=== PATIENT | female | born 2005 | race Caucasian/White ===

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

== ENCOUNTER 2025-01-01 11:18 | Outpatient (CLI) | payer MEDICAID, SELFPAY ==
[2025-01-01 13:38] LABS: HCG Quant, Pregnancy 15481 mIU/mL (1-3)
== END 2025-01-01 11:19 | disposition home or self-care (01) ==
LOC: LBO 11:20
PROVIDERS: PCP Student in an Organized Health Care Education/Training Program; Visit Provider Advanced Practice Midwife
DX: Z34.91 Encounter for supervision of normal pregnancy, unspecified, first trimester (principal); Z32.01 Encounter for pregnancy test, result positive
CPT/HCPCS: 36415; 86850; 86900; 86901; 84702

== ENCOUNTER 2025-01-09 01:05 | Outpatient (CLI) | payer MEDICAID, SELFPAY ==
[2025-01-09 13:55] LABS: HCG Quant, Pregnancy 62122 mIU/mL (1-3)
== END 2025-01-09 01:06 | disposition home or self-care (01) ==
LOC: LBO 01:05
PROVIDERS: Visit Provider Advanced Practice Midwife
DX: Z34.91 Encounter for supervision of normal pregnancy, unspecified, first trimester (principal)
CPT/HCPCS: 36415; 84702

== ENCOUNTER 2025-01-13 11:48 | Emergency (ER) | payer MEDICAID, SELFPAY ==
--- NOTE | 2025-01-13 12:00 | DI.US_ITS ---
Exam(s) US OB 1ST TRIMESTER EXAM: US OB 1ST TRIMESTER CLINICAL HISTORY: bleeding in first trimester. COMPARISON: US US OB 1ST TRIMESTER from 01/02/2025 TECHNIQUE: Transabdominal Transvaginal first trimester obstetrical ultrasound performed. FINDINGS: Sonographic images demonstrate a single intrauterine gestation. A very small amount of subchorionic hemorrhage is noted measuring 1.1 x 0.4 x 1.7 cm. A yolk sac and pole are seen. Sonographically assessed gestational age based upon crown-rump length of 1.2 cm is: 7 weeks 3 days Estimated date of delivery based on this ultrasound is: 29 August 2025. Estimated date of delivery based upon LMP: 29 August 2025 heart rate motion is Dopplered at: 159 bpm. No free fluid identified. Both ovaries appear sonographically normal. Pelvic Measurments Uterus: 9.1 x 5.1 x 6.6 cm Rt Ovary: 3.5 x 2.3 x 2.7 cm Lt Ovary: 2.8 x 1.5 x 2.3 cm IMPRESSION: Single live intrauterine gestation measuring 7 weeks 3 days. A small amount of subchorionic hemorrhage is again noted. DATA REPOSITORY:
[2025-01-13 12:01] VITALS: BP 122/83; PULSE 89; RESP 20; TEMP 36.5; O2SAT 98
--- NOTE | 2025-01-13 12:11 | W.ED.GENAD ---
Discharge Plan Disposition Patient Disposition: Home Discharge Details Clinical Impression: Subchorionic hemorrhage in first trimester, Primary Care Provider: Unknown,Unknown ED Provider: Reba Mata Home Meds and New Rx's Prescriptions: No Action ferrous sulfate [Feosol] 325 mg (65 mg iron) tablet 325 mg PO DAILY One Daily [id number] mg-mcg-mg combo pack 1 pkg PO DAILY AM Discharge Instructions Additional Instructions: Please call [facility] to schedule a follow-up appointment within the week. Return to emergency care if you develop new cramping/abdominal pain, heavy bleeding (>1 pad/hour), or if you are very worried and need to be rechecked again immediately. [place] [facility] [place] HPI General Date/Time Provider Initiated Documentation: 01/13/25 11:49. HPI Narrative: Maranda is a 19 year old female who presents to the ED today for evaluation of vaginal bleeding. She reports she is in her first trimester of (A0), LMP 11/22/24. She noticed a swirl of pink in the toilet after urinating and a faint trace on blood on TP after wiping today. Otherwise feels well, denies fever/chills, nausea/vomiting, change in PO intake, dysuria, change in bowel or bladder function, painful intercourse. Does have occasional mild abdominal cramping; says this has been ongoing and is unchanged since beginning of . Denies significant PMH or recent trauma. Had US performed on 01/09/25 showing single intrauterine (5+6 weeks) with subchorionic hemorrhage. Physical exam reassuring. Maranda is alert and oriented, in no acute distress. Abdomen is soft, nondistended, nontender to palpation with normoactive BS. Easy work of breathing, lung sounds clear bilaterally. Normal heart sounds. MMM. D/dx inclues but is not limited to: threatened miscarriage, subchorionic hemorrhage, UTI, ectopic (less likely based on reassuring US recently performed). VS reassuring (no tachycardia, hypotension, tachypnea), no concern at this time for hemodynamic instability or sepsis I independently interpreted the following tests: CBC reassuring. HCG positive. Blood type and RH (A+). Beta HCG 79,146 (increased from 62,122 on 01/09/25) Discussed case with dani Hull. Reviewed labs and imaging; all reassuring. Pt once again has subchorionic hemorrhage noted. OB recommends close f/u within one week and monitoring for abrupt changes such as cramping/abd pain and increased bleeding. Reviewed discharge instructions with pt, including importance of close f/u and red flags indicating need for return to emergency care. She is agreeable with plan of care. 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: 3 Review of Systems Narrative: see HPI Exam Const General: cooperative, healthy appearing, comfortable, no acute distress, well developed and well groomed Nutritional Appearance: average body habitus and well nourished Orientation: alert and oriented x3 Resp Effort & Inspection: normal respiratory effort and able to speak in complete sentences Auscultation: clear to auscultation bilaterally Cardio Rate: regular rate Rhythm: regular rhythm GI Inspection: normal to inspection and non-distended Palpation: soft, not firm, no guarding, not rigid and nontender Auscultation: normal bowel sounds Skin General skin exam: no rashes or lesions noted Course Vital Signs Vital signs: Vital Signs Temperature 36.5 C 01/13/25 12:01 Pulse 89 01/13/25 12:01 Respiratory Rate 20 01/13/25 12:01 Blood Pressure 122/83 01/13/25 12:01 Pulse Oximetry 98 01/13/25 12:01 Temperature 36.5 C 01/13/25 12:01 Pulse 89 01/13/25 12:01 Respiratory Rate 20 01/13/25 12:01 Blood Pressure 122/83 01/13/25 12:01 Blood Pressure Position Sitting 01/13/25 12:01 Pulse Oximetry 98 01/13/25 12:01 Oxygen Delivery Method Room Air 01/13/25 12:01 Oxygen Flow Rate 0 01/13/25 12:01 Medical Decision Making Quality:SDOH Health Related Social Needs: No Data to Display PFSH All Active Problems (Updated 01/13/25 @ 14:45 by Reba Quijano) Subchorionic hemorrhage in first trimester (Acute) , location unknown (Acute) Positive test (Acute) (Acute) Abdominal pain (Acute) Anxiety (Chronic) Depression (Chronic) PHQ9 + in 2018 (Score 18) with h/o self harm and strong family hx of anxiety/depression Last medicated about 1.5yrs ago, Medical History (Updated 01/13/25 @ 14:45 by Reba Quijano) Migraine headache without aura Weight loss Skin cyst Encounter for Nexplanon removal Family History Mother Bipolar disorder Father Anxiety Social History (Updated 01/01/25 @ 10:37 by Ronna Castro CNM) Smoking/Tobacco Use Status: Former Tobacco Use tobacco type: cigarettes Quit Date: 12/25/24 Second Hand Exposure: Yes Smoking risk assessment performed?: Yes Alcohol Intake: former Drug use: Occasionally Substance use type: marijuana Counseling given: Yes Counseling provided: provider counseling Foster care: No Household members: significant other Housing: apartment Education Level: high school Details: Senior at [age] 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 [employer] Pets and animals: Yes Pets and animals: cat(s) and dog(s) Sexually active: Yes Do you think of yourself as: straight/heterosexual Current gender identity: female What is your relationship status?: living with partner Panel score (0-1 are the most socially isolated patients): 1 What type of physical activity do you participate in: walking, aerobic and weight lifting Special liseth needs: No Agree to transfusion: Yes In current or past relationships, have you been: other Do you feel safe at home: Yes Do you feel safe in your relationship?: Yes PAWSS Have you Been Recently Intoxicated or Drunk Within the Last 30 days?: No Have you Ever Experienced Previous Episodes of Alcohol Withdrawal?: No Have you ever Experienced Withdrawal Seizures?: No Have you ever Experienced Delirium Tremens(DT)s?: No Have you ever undergone Alcohol Rehabilitation Treatment (i.e, inpt ot outpatient treatment programs)?: No Have you ever Experienced Blackouts?: No Have you ever Combined Alcohol with other Downers within the last 90 days?: No Have you ever Combined Alcohol with any other Substance of Abuse during the last 90 days?: No Positive Blood Alcohol level on Presentation? [PCS.BAL]: No Evidence of Increased Autonomic Activity (i.e. HR>120, tremor, sweating, agitation, nausea)?: No Result: 0
[2025-01-13 12:36] LABS: Abs Immature Grans 0.02 10^3/uL (0.0-0.06); Absolute Basophil Count 0.02 10^3/uL (0.0-0.2); Absolute Eosinophil Count 0.08 10^3/uL (0.0-0.7); Absolute Lymphocyte Count 1.75 10^3/uL (1.2-3.4); Absolute Monocyte Count 0.87 10^3/uL (0.1-0.8); Basophils % 0.3 %; HCT 40.4 % (36.0-46.0); HGB 13.9 g/dL (11.2-15.7); Immature Grans % 0.3 %; Lymphocytes % 22.6 %; MCH 28.7 pg (27.0-33.0); MCHC 34.4 % (32.0-36.0); MCV 84 fL (80-95); MPV 10.1 fL (8.0-11.0); Monocytes % 11.2 %; Neutrophils % 64.6 %; Platelet Count 216 10^3/uL (130-400); RBC 4.84 10^6/uL (3.93-5.22); RDW 12.4 % (11.7-14.6); RDW-SD 37.7 fL; WBC 7.74 10^3/uL (4.4-10.8)
[2025-01-13 13:03] LABS: HCG Qual (Serum) Positive
[2025-01-13 15:21] VITALS: BP 106/53; PULSE 75; RESP 21; TEMP 36.5; O2SAT 100
== END 2025-01-13 15:24 | disposition home or self-care (01) ==
PROVIDERS: Emergency Provider Nurse Practitioner Family
DX: O20.8 Other hemorrhage in early pregnancy (principal); Z3A.01 Less than 8 weeks gestation of pregnancy
CPT/HCPCS: 36415; 86900; 86901; 99284; 76801; 84702; 84703; 85025

== ENCOUNTER 2025-02-06 02:57 | Outpatient (CLI) | payer MEDICAID, SELFPAY ==
[2025-02-06 11:37] LABS: Panorama Kit Sent via Fed Ex
[2025-02-06 12:11] LABS: Abs Immature Grans 0.03 10^3/uL (0.0-0.06); Absolute Basophil Count 0.03 10^3/uL (0.0-0.2); Absolute Eosinophil Count 0.15 10^3/uL (0.0-0.7); Absolute Lymphocyte Count 1.95 10^3/uL (1.2-3.4); Absolute Monocyte Count 0.86 10^3/uL (0.1-0.8); Absolute Neutrophil Count 5.46 10^3/uL (1.2-6.7); Basophils % 0.4 %; Eosinophils % 1.8 %; HCT 36.7 % (36.0-46.0); HGB 12.9 g/dL (11.2-15.7); Immature Grans % 0.4 %; MCH 29.1 pg (27.0-33.0); MCHC 35.1 % (32.0-36.0); MCV 83 fL (80-95); MPV 10.4 fL (8.0-11.0); Monocytes % 10.1 %; Neutrophils % 64.3 %; Platelet Count 210 10^3/uL (130-400); RBC 4.44 10^6/uL (3.93-5.22); RDW 12.9 % (11.7-14.6); RDW-SD 38.8 fL; WBC 8.48 10^3/uL (4.4-10.8)
[2025-02-06 12:41] LABS: Hemoglobin A1C 4.8 % (<5.7)
[2025-02-06 13:25] LABS: HCG Quant, Pregnancy 52999 mIU/mL (1-3)
[2025-02-06 20:18] LABS: Hepatitis B Surface Ag Negative (Negative)
[2025-02-06 20:37] LABS: Hepatitis C Ab w Rflx HCV PCR Negative (Negative)
[2025-02-06 20:38] LABS: HIV-1/2 Ag & Ab Screen Negative (Negative)
[2025-02-09 13:52] LABS: Rubella IgG Ab (UVM) Positive (See Note); Varicella IgG Antibody Negative (See Note)
[2025-02-10 13:36] LABS: Syphilis IgG w/Reflex Nonreactive (Nonreactive)
== END 2025-02-06 02:58 | disposition home or self-care (01) ==
LOC: LBO 02:58
PROVIDERS: Advanced Practice Midwife; Visit Provider Advanced Practice Midwife
DX: Z34.81 Encounter for supervision of other normal pregnancy, first trimester (principal); O36.80X0 Pregnancy with inconclusive fetal viability, not applicable or unspecified
CPT/HCPCS: 36415; 86787; 86803; 86850; 86900; 86901; 87340; 87389; 83036; 84702; 85025; 86762; 86780

== ENCOUNTER 2025-02-06 10:17 | Outpatient (REF) | payer MEDICAID, SELFPAY ==
[2025-02-06 12:54] LABS: *AMPHETAMINES SCREEN URINE Negative (Negative); *BARBITURATES SCREEN URINE Negative (Negative); *BENZODIAZEPINES SCREEN URINE Negative (Negative); Cannabinoids THC Positive (Negative); Cocaine Screen,Urine Negative (Negative); METHADONE URINE SCREEN Negative (Negative); OPIATES URINE SCREEN Negative (Negative)
[2025-02-06 12:55] LABS: Tricyclic Antidepressants Negative (Negative)
[2025-02-09 09:51] LABS: Fentanyl Scr w/Rfx Confirm Negative ng/mL (<1)
[2025-02-09 12:29] LABS: GC Result Negative (Negative)
[2025-02-09 13:54] LABS: Chlamydia Result Positive (Negative)
[2025-02-12 10:15] LABS: Buprenorphine Negative ng/mL (Cutoff: 5.0); Norbuprenorphine Negative ng/mL (Cutoff: 2.5)
== END 2025-02-06 10:18 | disposition home or self-care (01) ==
LOC: LBN 10:17
PROVIDERS: Visit Provider Advanced Practice Midwife
DX: Z34.91 Encounter for supervision of normal pregnancy, unspecified, first trimester (principal)
CPT/HCPCS: 80307; 80348; 87491; 87591; 87086

== ENCOUNTER 2025-03-06 10:26 | Outpatient (REF) | payer MEDICAID, SELFPAY ==
[2025-03-09 12:01] LABS: Chlamydia Result Negative (Negative); GC Result Negative (Negative)
== END 2025-03-06 10:27 | disposition home or self-care (01) ==
LOC: LBN 10:26
PROVIDERS: Visit Provider Advanced Practice Midwife
DX: Z86.19 Personal history of other infectious and parasitic diseases (principal); O26.852 Spotting complicating pregnancy, second trimester
CPT/HCPCS: 87491; 87591; 87480; 87510; 87660

== ENCOUNTER 2025-04-09 01:57 | Outpatient (CLI) | payer MEDICAID, SELFPAY ==
--- NOTE | 2025-04-09 10:20 | DI.US_ITS ---
Exam(s) US OB 2-3 TRIMESTER EXAM: US OB 2-3 TRIMESTER CLINICAL HISTORY: 19 wk anatomy survey,z34.90. TECHNIQUE: Transabdominal obstetrical ultrasound performed. COMPARISON: US US OB 1ST TRIMESTER from 01/13/2025 FINDINGS: Number of fetuses: 1 position: Cephalic Placental location: Posterior. No evidence of previa. BIOMETRIC DATA: BPD: 46, 19+ 6 weeks HC: 175, 20+ 0 weeks AC: 136, 19+ 0 weeks FL: 32, 19+ 6 weeks Cisterna magna: 4 mm Cerebellum: 2.0 cm Lateral ventricle: 6 mm EFW: 297 grams, 34 percentile, Composite Age: 19+ 5 weeks JASON: 29 August 2025 Heart Rate: 148 Amniotic fluid : Amount of fluid is visually within normal limits. ANATOMICAL SURVEY: Four-chambered heart: Unremarkable. LVOT: Unremarkable. RVOT: Unremarkable. Left-sided stomach: Unremarkable. urinary bladder: Unremarkable. Bilateral kidneys: Unremarkable. Three-vessel cord: Unremarkable. Cord insertion: Unremarkable. Posterior fossa:Unremarkable. ventricles: Unremarkable. nose: Unremarkable. lips: Unremarkable. palate: Unremarkable. spine: Unremarkable. Two arms and two legs: Unremarkable. IMPRESSION: 1. Single live intrauterine gestation with composite age of 19+ 5 weeks. 2. Normal anatomic survey. DATA REPOSITORY:
== END 2025-04-09 02:17 ==
PROVIDERS: Visit Provider Advanced Practice Midwife
DX: Z34.92 Encounter for supervision of normal pregnancy, unspecified, second trimester (principal); Z3A.19 19 weeks gestation of pregnancy
CPT/HCPCS: 76805

== ENCOUNTER 2025-04-29 10:55 | Emergency (ER) | payer MEDICAID, SELFPAY ==
[2025-04-29 11:03] VITALS: BP 118/56; PULSE 83; RESP 18; TEMP 36.7
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
[2025-04-29] MEDS: Erythromycin Ophth Oint 3.5 GM TUBE OS (12:46)
[2025-04-29 17:00] VITALS: BP 118/56; PULSE 83; RESP 18; TEMP 36.7
== END 2025-04-29 17:00 | disposition home or self-care (01) ==
PROVIDERS: Emergency Provider Registered Nurse Emergency
DX: O99.891 Other specified diseases and conditions complicating pregnancy (principal); H04.322 Acute dacryocystitis of left lacrimal passage; Z87.891 Personal history of nicotine dependence; Z3A.20 20 weeks gestation of pregnancy; Z79.82 Long term (current) use of aspirin
CPT/HCPCS: 99283

== ENCOUNTER 2025-06-04 21:08 | Outpatient (REF) | payer MEDICAID, SELFPAY | END 2025-06-04 21:09 | disposition home or self-care (01) | LOC: LBN 21:08 | PROVIDERS: Visit Provider Physician Assistant | DX: L08.9 Local infection of the skin and subcutaneous tissue, unspecified (principal) | CPT/HCPCS: 87070; 87205 ==

== ENCOUNTER 2025-06-05 01:01 | Outpatient (CLI) | payer MEDICAID, SELFPAY ==
[2025-06-05 10:53] LABS: HCT 37.3 % (36.0-46.0); HGB 12.7 g/dL (11.2-15.7); MCH 28.4 pg (27.0-33.0); MCHC 34.0 % (32.0-36.0); MCV 83 fL (80-95); MPV 10.3 fL (8.0-11.0); Platelet Count 202 10^3/uL (130-400); RBC 4.47 10^6/uL (3.93-5.22); RDW 13.2 % (11.7-14.6); RDW-SD 40.4 fL; WBC 12.64 10^3/uL (4.4-10.8)
[2025-06-05 11:11] LABS: Glucose,1 Hr (Glucola) 112 mg/dL (80-140)
[2025-06-05 12:09] LABS: Cannabinoids THC Negative (Negative); METHADONE URINE SCREEN Negative (Negative)
[2025-06-08 09:11] LABS: Fentanyl Scr w/Rfx Confirm Negative ng/mL (<1)
== END 2025-06-05 01:02 | disposition home or self-care (01) ==
LOC: LBO 01:03
PROVIDERS: Visit Provider Advanced Practice Midwife
DX: Z34.91 Encounter for supervision of normal pregnancy, unspecified, first trimester (principal); F12.90 Cannabis use, unspecified, uncomplicated
CPT/HCPCS: 36415; 80307; 82950; 85027

== ENCOUNTER 2025-07-06 03:24 | Outpatient (CLI) | payer MEDICAID, SELFPAY ==
--- NOTE | 2025-07-06 11:50 | DI.US_ITS ---
Exam(s) US OB ABHIJIT WEIGHT EXAM: US OB ABHIJIT WEIGHT CLINICAL HISTORY: , bleeding in 3rd trim,Z34.90,OTHER HEMORRHAGE IN EARLY PREG O20.8. TECHNIQUE: Transabdominal obstetrical ultrasound was performed. COMPARISON: US US OB 2-3 TRIMESTER from 04/09/2025 FINDINGS: There is a single viable intrauterine gestation with cardiac activity identified-132 bpm The fetus is presently in cephalic position . Amniotic fluid: There is a normal amount of amniotic fluid with an ABHIJIT of 18.6cm. Placental location: The placenta is posterior grade 1,with no evidence of placenta previa. Dating parameters place this at approximately 32 weeks and 4 days gestational age, implying JASON of 08/27/2025. BPD measures 32 weeks and 4 days HC measures 32 weeks and 2 days AC measures 32 weeks and 4 days FL measures 32 weeks and 5 days Estimated weight is 2007 gm-4 pound 7 ounces Fetus is at the 49th percentile on the Hadlock scale. IMPRESSION:: Viable 3rd trimester gestation, as described above. DATA REPOSITORY:
== END 2025-07-06 03:44 ==
LOC: DI 03:24
PROVIDERS: Visit Provider Advanced Practice Midwife
DX: Z34.93 Encounter for supervision of normal pregnancy, unspecified, third trimester; Z3A.32 32 weeks gestation of pregnancy
CPT/HCPCS: 76816

== ENCOUNTER 2025-07-20 16:07 | Outpatient (CLI) | payer MEDICAID, SELFPAY ==
[2025-07-20 16:26] VITALS: BP 126/69; PULSE 101; TEMP 36.8
--- NOTE | 2025-07-20 17:01 | W.OBNST ---
Date of service: 07/20/25 Time of Service: 17:01 NST Evaluation Reason for NST Reasons for Nonstress Test: OTHER, SEE COMMENT Reason for NST Other: virus exposure Gestational Age Gestational Age in Weeks and Days: 34 Weeks and 2Days Test and Monitor Explained Test/Monitor Explained: Test Explained, Monitor Explained and Patient Verbalized Understanding Vital Signs Blood Pressure: 126/69 Pulse: 101 Temperature: 98.2 F NST Information Date on Monitor: 07/20/25 Time on Monitor: 16:01 Date off Monitor: 07/20/25 Time off Monitor: 16:36 Total Time on Monitor: 35 NST Interventions: PO Hydration Contraction Frequency: 2 contractions NST Evaluation Patient States Movement: Present FHR Baseline: 125 Variability: Moderate 6-25 bpm Accelerations: 15x15 Decelerations: None NST Results: Reactive Note Ultrasound Done: N/A. NST Note Note: Maranda was exposed to her brother who has fifths disease. She is very concerned as her boyfriend has URI symptoms and she is beginning to notice symptoms. Reactive NST. parvo virus titers drawn today. rest and fluids. I encouraged her to rest and take adequate fluids and call if symptoms worse. Await parvo results. NST Reviewed and Verified by: Emily Obando
[2025-07-20 17:04] VITALS: BP 126/69; PULSE 101; TEMP 36.8
== END 2025-07-20 16:39 ==
LOC: BCD 16:15 → OBS 16:24
PROVIDERS: Visit Provider Obstetrics & Gynecology
DX: Z3A.34 34 weeks gestation of pregnancy (principal); Z20.828 Contact with and (suspected) exposure to other viral communicable diseases; O99.891 Other specified diseases and conditions complicating pregnancy
CPT/HCPCS: 59025; 86747

== ENCOUNTER 2025-08-03 10:38 | Outpatient (REF) | payer MEDICAID, SELFPAY | END 2025-08-03 10:39 | disposition home or self-care (01) | LOC: LBN 10:38 | PROVIDERS: Visit Provider Advanced Practice Midwife | DX: Z34.93 Encounter for supervision of normal pregnancy, unspecified, third trimester (principal) | CPT/HCPCS: 87081 ==

== ENCOUNTER 2025-08-16 13:30 | Outpatient (CLI) | payer MEDICAID, SELFPAY ==
[2025-08-16 14:22] VITALS: BP 134/77; PULSE 85
[2025-08-16 14:23] VITALS: BP 133/77; PULSE 85; RESP 16; TEMP 36.7
[2025-08-16 15:05] VITALS: BP 134/77; PULSE 85; TEMP 36.7
--- NOTE | 2025-08-17 09:16 | W.OBNST ---
Date of service: 08/17/25 Time of Service: 15:30 NST Evaluation Reason for NST Reasons for Nonstress Test: FALSE LABOR Gestational Age Gestational Age in Weeks and Days: 38 Weeks and 1Days Test and Monitor Explained Test/Monitor Explained: Test Explained and Monitor Explained Vital Signs Blood Pressure: 134/77 Pulse: 85 Temperature: 98.1 F Urine Results Urine Protein: Positive Urine Ketones: Positive Urine Glucose: Negative Urine Blood: Negative NST Information Date on Monitor: 08/16/25 Time on Monitor: 14:10 Date off Monitor: 08/16/25 Time off Monitor: 15:05 Total Time on Monitor: 55 NST Interventions: PO Hydration Contraction Frequency: mild, irreg NST Evaluation Patient States Movement: Present FHR Baseline: 120 Variability: Moderate 6-25 bpm Accelerations: 15x15 Decelerations: None NST Results: Reactive Note Ultrasound Done: N/A. NST Note Note: pt states her discomfort has decreased since arriving at hospital drank juice and gingerale without emesis SVE ft/70% posterior, vvtx -3, intact membranes Will f/up as scheduled and as needed NST Reviewed and Verified by: Candice Dos Santos
[2025-08-17 09:18] VITALS: BP 134/77; PULSE 85; TEMP 36.7
== END 2025-08-16 15:10 ==
LOC: BCD 13:47 → OBS 14:08
PROVIDERS: Visit Provider Advanced Practice Midwife
DX: O47.03 False labor before 37 completed weeks of gestation, third trimester (principal); Z3A.38 38 weeks gestation of pregnancy; R80.9 Proteinuria, unspecified
CPT/HCPCS: 59025; 87086; 87480; 87510; 87660

== ENCOUNTER 2025-08-18 10:42 | Outpatient (CLI) | payer MEDICAID, SELFPAY ==
[2025-07-27 16:52] LABS: Parvovirus B19 Ab, IgG Negative (Negative); Parvovirus B19 Ab, IgM Negative (Negative)
== END 2025-08-18 10:43 | disposition home or self-care (01) ==
LOC: LBO 10:42
PROVIDERS: Visit Provider Advanced Practice Midwife
DX: Z34.93 Encounter for supervision of normal pregnancy, unspecified, third trimester (principal); Z20.828 Contact with and (suspected) exposure to other viral communicable diseases
CPT/HCPCS: 36415; 86747

== ENCOUNTER 2025-08-29 01:54 | Outpatient (CLI) | payer MEDICAID, SELFPAY ==
[2025-08-29 02:42] VITALS: BP 133/85; PULSE 79
--- NOTE | 2025-08-29 15:10 | W.OBNST ---
Date of service: 08/29/25 Time of Service: 02:30 NST Evaluation Reason for NST Reasons for Nonstress Test: DECREASED MOVEMENT Gestational Age Gestational Age in Weeks and Days: 40 Weeks and 0Days Test and Monitor Explained Test/Monitor Explained: Test Explained, Monitor Explained and Patient Verbalized Understanding Vital Signs Blood Pressure: 133/85 Pulse: 79 NST Information Date on Monitor: 08/29/25 Time on Monitor: 02:22 Date off Monitor: 08/29/25 Time off Monitor: 02:45 Total Time on Monitor: 23 NST Interventions: PO Hydration NST Evaluation Patient States Movement: Decreased FHR Baseline: 115 Variability: Moderate 6-25 bpm Accelerations: 15x15 Decelerations: None NST Results: Reactive Note Ultrasound Done: N/A. NST Note NST Reviewed and Verified by: Candice Dos Santos
[2025-08-29 15:11] VITALS: BP 133/85; PULSE 79
== END 2025-08-29 02:53 ==
LOC: BCD 01:55 → OBS 02:25
PROVIDERS: Visit Provider Advanced Practice Midwife
DX: O36.8131 Decreased fetal movements, third trimester, fetus 1 (principal); Z3A.40 40 weeks gestation of pregnancy
CPT/HCPCS: 59025

== ENCOUNTER 2025-08-31 07:42 | Outpatient (CLI) | payer MEDICAID, SELFPAY ==
[2025-08-31 08:59] VITALS: BP 117/69; PULSE 93; TEMP 36.9
[2025-08-31 09:08] VITALS: BP 117/69; PULSE 93
--- NOTE | 2025-08-31 16:22 | W.OBNST ---
Date of service: 08/31/25 Time of Service: 16:22 NST Evaluation Reason for NST Reasons for Nonstress Test: POSTDATES Gestational Age Gestational Age in Weeks and Days: 40 Weeks and 2Days Test and Monitor Explained Test/Monitor Explained: Test Explained, Monitor Explained and Patient Verbalized Understanding Vital Signs Blood Pressure: 117/69 Pulse: 93 Temperature: 98.4 F Weight: 242 lb Urine Results Urine Protein: Positive Urine Ketones: Negative Urine Glucose: Negative Urine Blood: Negative NST Information Date on Monitor: 08/31/25 Time on Monitor: 09:05 Date off Monitor: 08/31/25 Time off Monitor: 09:31 Total Time on Monitor: 26 NST Interventions: PO Hydration Contraction Frequency: 3-8 NST Evaluation Patient States Movement: Present FHR Baseline: 135 Variability: Moderate 6-25 bpm Accelerations: 15x15 Decelerations: None NST Results: Reactive Note Ultrasound Done: N/A. NST Note Note: Maranda is here for post dates NST and cervical exam. She is very anxious for labor to start but does not wish to have a long induction. SVE - cervix post/ firm/-2/ 0.5 cms. Reviewed induction of labor. NST Reviewed and Verified by: Emily Obando
[2025-08-31 16:25] VITALS: BP 117/69; PULSE 93; TEMP 36.9
== END 2025-08-31 10:04 ==
LOC: BCD 07:45 → OBS 08:58
PROVIDERS: Visit Provider Advanced Practice Midwife
DX: O48.0 Post-term pregnancy (principal); Z3A.40 40 weeks gestation of pregnancy
CPT/HCPCS: 59025

== ENCOUNTER 2025-09-02 15:35 | Outpatient (CLI) | payer MEDICAID, SELFPAY ==
[2025-09-02 15:49] VITALS: BP 129/83; PULSE 96
[2025-09-02 15:51] VITALS: BP 129/83; PULSE 96; TEMP 36.5
--- NOTE | 2025-09-02 16:55 | W.PM.PROGNOT ---
Date of Service Date of service: 09/02/25 Time of Service: 16:55 Subjective Subjective Interval history since last seen: Kindly asked to perform an amniotic fluid index on this patient at 40 weeks and 4 days in conjunction with surveillance. Objective Last Vital Signs Pulse 96 H 09/02/25 15:49 BP 129/83 09/02/25 15:49 VTE Prohylaxis Risk Level: Low Risk Contraindications: None Prophylaxis: Patient ambulatory Pocus Exam Limited OB Exam DATE OF EXAM:: 09/02/25 TIME OF EXAM:: 16:56 PROVIDER THAT PERFORMED THE STUDY: Eulalia Mcarthur DIFFERENTAL DIAGNOSES: Amniotic fluid index performed, total ABHIJIT equals 10.8. Fetus in the vertex position. Time Spent with Patient Time Spent with Patient: <25 minutes Time was spent: preparing to see the patient(eg.review tests), obtaining and/or reviewing separately otained hiistory, ordering medications,tests, procedures, referring, communicating with other health adult care manager and indepentently interpreting results
--- NOTE | 2025-09-09 14:59 | W.OBNST ---
Date of service: 09/09/25 Time of Service: 14:59 NST Evaluation Reason for NST Reasons for Nonstress Test: OTHER, SEE COMMENT Reason for NST Other: ABHIJIT Gestational Age Gestational Age in Weeks and Days: 41 Weeks and 0Days Test and Monitor Explained Test/Monitor Explained: Test Explained and Monitor Explained Vital Signs Blood Pressure: 129/83 Pulse: 96 Temperature: 97.7 F Weight: 245 lb 0.004 oz NST Information Date on Monitor: 09/02/25 Time on Monitor: 15:37 Date off Monitor: 09/02/25 Time off Monitor: 16:18 Total Time on Monitor: 41 NST Interventions: PO Hydration NST Evaluation Patient States Movement: Present FHR Baseline: 135 Variability: Moderate 6-25 bpm Accelerations: 15x15 Decelerations: None NST Results: Reactive Note Ultrasound Done: ABHIJIT Total ABHIJIT: 10.8 Coding for ABHIJIT w/NST: Completed Exam. NST Note NST Reviewed and Verified by: Candice Dos Santos
[2025-09-09 15:00] VITALS: BP 129/83; PULSE 96; TEMP 36.5
--- NOTE | 2025-09-23 09:11 | W.OBNST ---
Date of service: 08/26/25 Time of Service: 15:00 NST Evaluation Reason for NST Reasons for Nonstress Test: POSTDATES and OTHER, SEE COMMENT Reason for NST Other: ABHIJIT Gestational Age Gestational Age in Weeks and Days: 41 Weeks and 0Days Test and Monitor Explained Test/Monitor Explained: Test Explained and Monitor Explained Vital Signs Blood Pressure: 129/83 Pulse: 96 Temperature: 97.7 F Weight: 245 lb 0.004 oz NST Information Date on Monitor: 09/02/25 Time on Monitor: 15:37 Date off Monitor: 09/02/25 Time off Monitor: 16:18 Total Time on Monitor: 41 NST Interventions: PO Hydration NST Evaluation Patient States Movement: Present FHR Baseline: 135 Variability: Moderate 6-25 bpm Accelerations: 15x15 Decelerations: None NST Results: Reactive Note Ultrasound Done: N/A. NST Note NST Reviewed and Verified by: Nadia Joaquin
[2025-09-23 09:13] VITALS: BP 129/83; PULSE 96; TEMP 36.5
== END 2025-09-02 16:15 ==
LOC: BCD 15:35 → OBS 15:40
PROVIDERS: Visit Provider Registered Nurse
DX: O48.0 Post-term pregnancy (principal); Z3A.41 41 weeks gestation of pregnancy
CPT/HCPCS: 59025

== ENCOUNTER 2025-09-05 17:52 | Inpatient (IN) | payer MEDICAID, SELFPAY ==
[2025-09-05] VITALS (25 sets, daily range): BP systolic 122–151; BP diastolic 65–81; PULSE 75–115; RESP 20; TEMP 36.8; O2SAT 94
--- NOTE | 2025-09-05 18:33 | NUR.NOTE ---
Nursing Note:[id number] Cooks Balloon placed by Emily. 60cc saline in uterine balloon and 60cc Vaginal balloon.
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
[2025-09-05 18:52] LABS: Abs Immature Grans 0.08 10^3/uL (0.0-0.06); HCT 38.0 % (36.0-46.0); HGB 12.6 g/dL (11.2-15.7); Immature Grans % 0.6 %; MCH 26.9 pg (27.0-33.0); MCHC 33.2 % (32.0-36.0); MCV 81 fL (80-95); MPV 11.3 fL (8.0-11.0); Platelet Count 206 10^3/uL (130-400); RBC 4.68 10^6/uL (3.93-5.22); RDW 13.5 % (11.7-14.6); RDW-SD 39.3 fL; WBC 12.51 10^3/uL (4.4-10.8)
[2025-09-05 18:54] LABS: ALT 7 U/L (10-49); AST 14 U/L (<34); Albumin 3.6 g/dL (3.2-5.0); Alkaline Phosphatase 159 U/L (46-116); Anion Gap 8.3 mmol/L (3-11); BUN 9 mg/dL (9-23); Bilirubin, Total 0.40 mg/dL (0.2-1.2); CO2 21.7 mmol/L (20.0-31.0); Calcium 9.0 mg/dL (8.3-10.6); Chloride 110 mmol/L (98-107); Glucose 90 mg/dL (74-106); Potassium 4.0 mmol/L (3.5-5.1); Sodium 140 mmol/L (136-145); Total Protein 6.5 g/dL (5.7-8.2)
[2025-09-05] MEDS: miSOPROStol 50 MCG TAB PO (19:27)
[2025-09-05 22:31] LABS: Fentanyl Scr w/Rflx to Conf, U Negative (Negative)
[2025-09-06] VITALS (268 sets, daily range): BP systolic 101–145; BP diastolic 56–85; PULSE 0–144; RESP 16–99; TEMP 36.4–37.1; O2SAT 95–98; BMI 41.5
[2025-09-06] MEDS: Lactated Ringers 1,000 ML 125 ML IV ×4 (00:13→17:08)
[2025-09-06] MEDS: Ondansetron 4 MG/2 ML VIAL IVP (00:14)
[2025-09-06] MEDS: Lactated Ringers 500 ML IV (00:15)
[2025-09-06] MEDS: Zolpidem 10 MG TAB PO (00:25)
--- NOTE | 2025-09-06 01:15 | W.PM.OBNL1 ---
Date of service: 09/06/25 Time of Service: 01:15 Contractions Monitor Mode: External Contraction Frequency(min): every 2-4 Contraction Duration(sec): 40-60 Intensity: Mild/Moderate Fetus A Monitor: External (US) Heart Rate Baseline: 140 Presentation: Cephalic Variability: Moderate (6-25 BPM) Categories: Category I FHR Rhythm: Regular Accelerations: 15 X 15 Decelerations: None Amniotic Membrane Status: Intact Assessment Note: balloon in place Assessment and Plan Assessment and plan (1) Encounter for induction of labor: Status: Acute Assessment and plan: IV started lactated Ringers and 500 cc bolus provided. ondansetron 4 mg IV and ambien PRN for rest. Rest was encouraged. Objective Abnormal lab results 09/05/25 Range/Units 16:24 WBC 12.51 H (4.4-10.8) 10^3/uL MCH 26.9 L (27.0-33.0) pg MPV 11.3 H (8.0-11.0) fL Absolute Neutrophils 8.69 H (1.2-6.7) 10^3/uL Absolute Monocytes 1.29 H (0.1-0.8) 10^3/uL Chloride 110 H (98-107) mmol/L ALT 7 L (10-49) U/L Alkaline Phosphatase 159 H (46-116) U/L Temp Pulse Resp BP Pulse Ox 98.2 F 99 H 20 117/58 L 94 09/05/25 17:27 09/06/25 01:11 09/05/25 17:30 09/06/25 00:16 09/05/25 17:27 Laboratory Results WBC 12.51 10^3/uL (4.4-10.8) H 09/05/25 16:24 RBC 4.68 10^6/uL (3.93-5.22) 09/05/25 16:24 Hgb 12.6 g/dL (11.2-15.7) 09/05/25 16:24 Hct 38.0 % (36.0-46.0) 09/05/25 16:24 MCV 81 fL (80-95) 09/05/25 16:24 MCH 26.9 pg (27.0-33.0) L 09/05/25 16:24 MCHC 33.2 % (32.0-36.0) 09/05/25 16:24 RDW 13.5 % (11.7-14.6) 09/05/25 16:24 Plt Count 206 10^3/uL (130-400) 09/05/25 16:24 MPV 11.3 fL (8.0-11.0) H 09/05/25 16:24 Immature Gran % 0.6 % 09/05/25 16:24 Neutrophils % 69.5 % 09/05/25 16:24 Lymphocytes % 18.0 % 09/05/25 16:24 Monocytes % 10.3 % 09/05/25 16:24 Eosinophils % 1.4 % 09/05/25 16:24 Basophils % 0.2 % 09/05/25 16:24 Nucleated RBC % 0.0 % (0.0-0.3) 09/05/25 16:24 Absolute Neutrophils 8.69 10^3/uL (1.2-6.7) H 09/05/25 16:24 Absolute Lymphocytes 2.25 10^3/uL (1.2-3.4) 09/05/25 16:24 Absolute Monocytes 1.29 10^3/uL (0.1-0.8) H 09/05/25 16:24 Absolute Eosinophils 0.18 10^3/uL (0.0-0.7) 09/05/25 16:24 Absolute Basophils 0.03 10^3/uL (0.0-0.2) 09/05/25 16:24 Sodium 140 mmol/L (136-145) 09/05/25 16:24 Potassium 4.0 mmol/L (3.5-5.1) 09/05/25 16:24 Chloride 110 mmol/L (98-107) H 09/05/25 16:24 Carbon Dioxide 21.7 mmol/L (20.0-31.0) 09/05/25 16:24 Anion Gap 8.3 mmol/L (3-11) 09/05/25 16:24 BUN 9 mg/dL (9-23) 09/05/25 16:24 Creatinine 0.60 mg/dL (0.55-1.02) 09/05/25 16:24 Est GFR (CKD-EPI 2020) 126.66 (mL/min/1.73m2) 09/05/25 16:24 Glucose 90 mg/dL (74-106) 09/05/25 16:24 Calcium 9.0 mg/dL (8.3-10.6) 09/05/25 16:24 Total Bilirubin 0.40 mg/dL (0.2-1.2) 09/05/25 16:24 AST 14 U/L (<34) 09/05/25 16:24 ALT 7 U/L (10-49) L 09/05/25 16:24 Alkaline Phosphatase 159 U/L (46-116) H 09/05/25 16:24 Total Protein 6.5 g/dL (5.7-8.2) 09/05/25 16:24 Albumin 3.6 g/dL (3.2-5.0) 09/05/25 16:24 Urine Opiates Screen Negative (Negative) 09/05/25 18:00 Urine Methadone Screen Negative (Negative) 09/05/25 18:00 Urine Fentanyl Screen Negative (Negative) 09/05/25 17:00 Ur Barbiturates Screen Negative (Negative) 09/05/25 18:00 Ur Tricyclics Screen Negative (Negative) 09/05/25 18:00 Ur Amphetamines Screen Negative (Negative) 09/05/25 18:00 U Benzodiazepines Scrn Negative (Negative) 09/05/25 18:00 Urine Cocaine Screen Negative (Negative) 09/05/25 18:00 ABO/Rh A Positive 09/05/25 16:24 Antibody Screen NEGATIVE 09/05/25 16:24 Vital Signs Reviewed: Yes Subjective Patient Reports: New Complaints Interval history since last seen: Maranda has been experiencing cramping with diarrhea and vomiting. Misoprostol was held due to census on the unit. Results Hemoglobin/Hematocrit: Hgb 12.6 g/dL (11.2-15.7) 09/05/25 16:24 Hct 38.0 % (36.0-46.0) 09/05/25 16:24 Abnormal Lab Findings: Abnormal Labs 09/05/25 16:24 WBC 12.51 H MCH 26.9 L MPV 11.3 H Absolute Neutrophils 8.69 H Absolute Monocytes 1.29 H Chloride 110 H ALT 7 L Alkaline Phosphatase 159 H
--- NOTE | 2025-09-06 07:26 | W.PM.OBNL1 ---
Date of service: 09/06/25 Time of Service: 07:26 Informed Consent Informed Consent: Augmentation of Labor Contractions Monitor Mode: External Contraction Frequency(min): every 3-4 minutes Contraction Duration(sec): 60 Intensity: Mild/Moderate Fetus A Monitor: External (US) Heart Rate Baseline: 120 Presentation: Cephalic Variability: Moderate (6-25 BPM) Categories: Category I Accelerations: 15 X 15 Decelerations: None Assessment and Plan Assessment and plan (1) Encounter for induction of labor: Status: Acute Assessment and plan: Will examine when she wakes up and consider continued cervical ripening with misoprostol or pitocin infusion if her cervix is favorable. Will offer comfort measures and anticipate . Objective Abnormal lab results 09/05/25 Range/Units 16:24 WBC 12.51 H (4.4-10.8) 10^3/uL MCH 26.9 L (27.0-33.0) pg MPV 11.3 H (8.0-11.0) fL Absolute Neutrophils 8.69 H (1.2-6.7) 10^3/uL Absolute Monocytes 1.29 H (0.1-0.8) 10^3/uL Chloride 110 H (98-107) mmol/L ALT 7 L (10-49) U/L Alkaline Phosphatase 159 H (46-116) U/L Temp Pulse Resp BP Pulse Ox 98.1 F 90 20 121/67 94 09/06/25 05:55 09/06/25 07:23 09/05/25 17:30 09/06/25 05:54 09/05/25 17:27 Laboratory Results WBC 12.51 10^3/uL (4.4-10.8) H 09/05/25 16:24 RBC 4.68 10^6/uL (3.93-5.22) 09/05/25 16:24 Hgb 12.6 g/dL (11.2-15.7) 09/05/25 16:24 Hct 38.0 % (36.0-46.0) 09/05/25 16:24 MCV 81 fL (80-95) 09/05/25 16:24 MCH 26.9 pg (27.0-33.0) L 09/05/25 16:24 MCHC 33.2 % (32.0-36.0) 09/05/25 16:24 RDW 13.5 % (11.7-14.6) 09/05/25 16:24 Plt Count 206 10^3/uL (130-400) 09/05/25 16:24 MPV 11.3 fL (8.0-11.0) H 09/05/25 16:24 Immature Gran % 0.6 % 09/05/25 16:24 Neutrophils % 69.5 % 09/05/25 16:24 Lymphocytes % 18.0 % 09/05/25 16:24 Monocytes % 10.3 % 09/05/25 16:24 Eosinophils % 1.4 % 09/05/25 16:24 Basophils % 0.2 % 09/05/25 16:24 Nucleated RBC % 0.0 % (0.0-0.3) 09/05/25 16:24 Absolute Neutrophils 8.69 10^3/uL (1.2-6.7) H 09/05/25 16:24 Absolute Lymphocytes 2.25 10^3/uL (1.2-3.4) 09/05/25 16:24 Absolute Monocytes 1.29 10^3/uL (0.1-0.8) H 09/05/25 16:24 Absolute Eosinophils 0.18 10^3/uL (0.0-0.7) 09/05/25 16:24 Absolute Basophils 0.03 10^3/uL (0.0-0.2) 09/05/25 16:24 Sodium 140 mmol/L (136-145) 09/05/25 16:24 Potassium 4.0 mmol/L (3.5-5.1) 09/05/25 16:24 Chloride 110 mmol/L (98-107) H 09/05/25 16:24 Carbon Dioxide 21.7 mmol/L (20.0-31.0) 09/05/25 16:24 Anion Gap 8.3 mmol/L (3-11) 09/05/25 16:24 BUN 9 mg/dL (9-23) 09/05/25 16:24 Creatinine 0.60 mg/dL (0.55-1.02) 09/05/25 16:24 Est GFR (CKD-EPI 2020) 126.66 (mL/min/1.73m2) 09/05/25 16:24 Glucose 90 mg/dL (74-106) 09/05/25 16:24 Calcium 9.0 mg/dL (8.3-10.6) 09/05/25 16:24 Total Bilirubin 0.40 mg/dL (0.2-1.2) 09/05/25 16:24 AST 14 U/L (<34) 09/05/25 16:24 ALT 7 U/L (10-49) L 09/05/25 16:24 Alkaline Phosphatase 159 U/L (46-116) H 09/05/25 16:24 Total Protein 6.5 g/dL (5.7-8.2) 09/05/25 16:24 Albumin 3.6 g/dL (3.2-5.0) 09/05/25 16:24 Urine Opiates Screen Negative (Negative) 09/05/25 18:00 Urine Methadone Screen Negative (Negative) 09/05/25 18:00 Urine Fentanyl Screen Negative (Negative) 09/05/25 17:00 Ur Barbiturates Screen Negative (Negative) 09/05/25 18:00 Ur Tricyclics Screen Negative (Negative) 09/05/25 18:00 Ur Amphetamines Screen Negative (Negative) 09/05/25 18:00 U Benzodiazepines Scrn Negative (Negative) 09/05/25 18:00 Urine Cocaine Screen Negative (Negative) 09/05/25 18:00 ABO/Rh A Positive 09/05/25 16:24 Antibody Screen NEGATIVE 09/05/25 16:24 Vital Signs Reviewed: Yes Subjective Patient Reports: No new Complaints Interval history since last seen: Maranda slept well last night and the ripening balloon fell out this morning. She went back to sleep and has not been disturbed. Results Hemoglobin/Hematocrit: Hgb 12.6 g/dL (11.2-15.7) 09/05/25 16:24 Hct 38.0 % (36.0-46.0) 09/05/25 16:24 Abnormal Lab Findings: Abnormal Labs 09/05/25 16:24 WBC 12.51 H MCH 26.9 L MPV 11.3 H Absolute Neutrophils 8.69 H Absolute Monocytes 1.29 H Chloride 110 H ALT 7 L Alkaline Phosphatase 159 H
[2025-09-06] MEDS: Oxytocin/Normal Saline 30 UNIT/500 ML BAG 2 UNITS IV (12:56)
[2025-09-06] MEDS: Ondansetron 4 MG/2 ML VIAL (16:40)
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
--- NOTE | 2025-09-06 17:02 | W.PM.OBNL1 ---
Date of service: 09/06/25 Time of Service: 17:02 Informed Consent Informed Consent: Augmentation of Labor Pelvic Exam Dilation: 5 Effacement (%): 100 station: -1 Position: OP Cervix Position: mid Consistency: soft Contractions Monitor Mode: External Contraction Frequency(min): every 3-4 Contraction Duration(sec): 60 IUPC resting tone (mmHg): 40 IUPC peak pressure (mmHg): 90 IUPC [place] units: 200 Fetus A Monitor: Internal (FSE) Heart Rate Baseline: 120 Variability: Moderate (6-25 BPM) Categories: Category II FHR Rhythm: Regular Accelerations: 15 X 15 Decelerations: Variable Recurrence: Recurrent Assessment and Plan Assessment and plan (1) Encounter for induction of labor: Status: Acute Assessment and plan: IUPC and FECG placed to better assess heart rate pattern. Dr Mcarthur was consulted re: patient's status and heart rate pattern and she discussed indication for delivery. Maranda and her partner, Migue agree and the OR team was called and Maranda was prepared for delivery. Objective Abnormal lab results 09/05/25 Range/Units 16:24 WBC 12.51 H (4.4-10.8) 10^3/uL MCH 26.9 L (27.0-33.0) pg MPV 11.3 H (8.0-11.0) fL Absolute Neutrophils 8.69 H (1.2-6.7) 10^3/uL Absolute Monocytes 1.29 H (0.1-0.8) 10^3/uL Chloride 110 H (98-107) mmol/L ALT 7 L (10-49) U/L Alkaline Phosphatase 159 H (46-116) U/L Temp Pulse Resp BP Pulse Ox 98.4 F 104 H 18 136/75 96 09/06/25 16:18 09/06/25 16:24 09/06/25 09:05 09/06/25 14:55 09/06/25 09:05 Laboratory Results WBC 12.51 10^3/uL (4.4-10.8) H 09/05/25 16:24 RBC 4.68 10^6/uL (3.93-5.22) 09/05/25 16:24 Hgb 12.6 g/dL (11.2-15.7) 09/05/25 16:24 Hct 38.0 % (36.0-46.0) 09/05/25 16:24 MCV 81 fL (80-95) 09/05/25 16:24 MCH 26.9 pg (27.0-33.0) L 09/05/25 16:24 MCHC 33.2 % (32.0-36.0) 09/05/25 16:24 RDW 13.5 % (11.7-14.6) 09/05/25 16:24 Plt Count 206 10^3/uL (130-400) 09/05/25 16:24 MPV 11.3 fL (8.0-11.0) H 09/05/25 16:24 Immature Gran % 0.6 % 09/05/25 16:24 Neutrophils % 69.5 % 09/05/25 16:24 Lymphocytes % 18.0 % 09/05/25 16:24 Monocytes % 10.3 % 09/05/25 16:24 Eosinophils % 1.4 % 09/05/25 16:24 Basophils % 0.2 % 09/05/25 16:24 Nucleated RBC % 0.0 % (0.0-0.3) 09/05/25 16:24 Absolute Neutrophils 8.69 10^3/uL (1.2-6.7) H 09/05/25 16:24 Absolute Lymphocytes 2.25 10^3/uL (1.2-3.4) 09/05/25 16:24 Absolute Monocytes 1.29 10^3/uL (0.1-0.8) H 09/05/25 16:24 Absolute Eosinophils 0.18 10^3/uL (0.0-0.7) 09/05/25 16:24 Absolute Basophils 0.03 10^3/uL (0.0-0.2) 09/05/25 16:24 Sodium 140 mmol/L (136-145) 09/05/25 16:24 Potassium 4.0 mmol/L (3.5-5.1) 09/05/25 16:24 Chloride 110 mmol/L (98-107) H 09/05/25 16:24 Carbon Dioxide 21.7 mmol/L (20.0-31.0) 09/05/25 16:24 Anion Gap 8.3 mmol/L (3-11) 09/05/25 16:24 BUN 9 mg/dL (9-23) 09/05/25 16:24 Creatinine 0.60 mg/dL (0.55-1.02) 09/05/25 16:24 Est GFR (CKD-EPI 2020) 126.66 (mL/min/1.73m2) 09/05/25 16:24 Glucose 90 mg/dL (74-106) 09/05/25 16:24 Calcium 9.0 mg/dL (8.3-10.6) 09/05/25 16:24 Total Bilirubin 0.40 mg/dL (0.2-1.2) 09/05/25 16:24 AST 14 U/L (<34) 09/05/25 16:24 ALT 7 U/L (10-49) L 09/05/25 16:24 Alkaline Phosphatase 159 U/L (46-116) H 09/05/25 16:24 Total Protein 6.5 g/dL (5.7-8.2) 09/05/25 16:24 Albumin 3.6 g/dL (3.2-5.0) 09/05/25 16:24 Urine Opiates Screen Negative (Negative) 09/05/25 18:00 Urine Methadone Screen Negative (Negative) 09/05/25 18:00 Urine Fentanyl Screen Negative (Negative) 09/05/25 17:00 Ur Barbiturates Screen Negative (Negative) 09/05/25 18:00 Ur Tricyclics Screen Negative (Negative) 09/05/25 18:00 Ur Amphetamines Screen Negative (Negative) 09/05/25 18:00 U Benzodiazepines Scrn Negative (Negative) 09/05/25 18:00 Urine Cocaine Screen Negative (Negative) 09/05/25 18:00 ABO/Rh A Positive 09/05/25 16:24 Antibody Screen NEGATIVE 09/05/25 16:24 Vital Signs Reviewed: Yes Subjective Patient Reports: New Complaints Interval history since last seen: Contractions are now very strong. Maranda is coping well and using nitrous oxide for pain relief. Pitocin augmentation was started and was infusing at 6 mu/min. Results Hemoglobin/Hematocrit: Hgb 12.6 g/dL (11.2-15.7) 09/05/25 16:24 Hct 38.0 % (36.0-46.0) 09/05/25 16:24 Abnormal Lab Findings: Abnormal Labs 09/05/25 16:24 WBC 12.51 H MCH 26.9 L MPV 11.3 H Absolute Neutrophils 8.69 H Absolute Monocytes 1.29 H Chloride 110 H ALT 7 L Alkaline Phosphatase 159 H
[2025-09-06] MEDS: AZITHROMYCIN 500 MG in Normal Saline 250 ML 250 MG IVPB (17:29)
[2025-09-06] MEDS: Sodium Citrate 30 ML CUP PO (17:31)
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
[2025-09-06] MEDS: ceFAZolin 2 GM/50 ML BAG IVPB (18:26)
[2025-09-06] MEDS: Bupivacaine 0.25% Pres-Free 30 ML VIAL (18:26)
--- NOTE | 2025-09-06 18:38 | PLAC_PTH ---
PATIENT: Maranda Stone LOC: OBS U#:[id number] AGE/SX: 20/F ROOM: OBS.304 RE09/05/[address]: Emily Obando : 2005 BED: A DIS: 09/09/2025 SPEC #: [id number] RECD: 09/07/25 12:53 STATUS: CASSIE REQ #: [id number] ARTURO: 09/06/25 18:[address]: Emily Obando DEPT: Surgical Specimen RECD BY: Magdalena Carter ENTERED: 09/07/25 12:53 SP TYPE: PLAC OTHR DR: Unknown,Unknown Tissues: 1 - PLACENTA (3RD TRIMESTER) Procedures: GROSS AND MICRO LEVEL 5 Comments: [id number]
[2025-09-06] MEDS: Oxytocin/Normal Saline 30 UNIT/500 ML BAG 95 UNITS IV (18:50)
--- NOTE | 2025-09-06 19:42 | PDOC.OPNB_ITS ---
Date of service: 09/06/25 Time of Service: 19:42 Operative Note Operative Note Delivery Method: Unscheduled STAT: No and Primary NTSV>37 Weeks: Yes DATE OF PROCEDURE: 09/06/25 PRE-OP DIAGNOSES: at 41 weeks and 1 day, thick mec, category 2 tracing, failed ind PROCEDURE: Primary low-transverse SURGEON: Eulalia Mcarthur Regulatory And Compliance Technician: Lynda Coffman Anesthesia: spinal Estimated blood loss (mL): 600 Pathology: other (1. Cord blood sample 2. Cord blood gases 3. Placenta for exam) Complications: None Patient was transported to: floor Patient's condition: stable Indications: Category 2 heart rate tracing, remote from delivery. Arrest of descent. Significant caput. Findings: Delivered a viable male infant. Thick meconium. Loose nuchal cord x 1. Normal tubes, ovaries, uterus Procedure Description: After patient counseled regarding versus ongoing labor, patient opted for . The risk, benefits, and alternatives which include but are not limited to infection, bleeding, injury to the surrounding organs, risk of anesthesia, risk of thromboembolic events. Patient was taken the operating suite with an IV running. She is placed in the seated position and spinal anesthesia administered. She was then placed in the dorsal supine position with a leftward tilt and prepped and draped in the usual sterile fashion. She had pneumatic compression stockings for DVT prophylaxis and received 2 g of Ancef and 500 mg of Zithromax for surgical site infection prophylaxis. Maravilla catheter was inserted into her bladder for continuous bladder drainage. A timeout was held. Analgesia was tested and found to be adequate. A Pfannenstiel skin incision was made and carried down to the underlying fascia. The fascia was incised in the midline and extended laterally. The rectus muscles were identified and in the midline. The peritoneum was identified tented up and entered sharply. The peritoneal incision was then extended superiorly and inferiorly. At this point the delay bladder blade was inserted and the vesicouterine peritoneum identified tented up and entered sharply. The bladder flap was then created. A low transverse uterine incision was made with a scalpel and extended bluntly laterally. There was persistent, thick, particulate meconium fluid noted. The vertex was gently elevated from the pelvis. There was noted to be a significant amount of. There was a nuchal cord x 1 which was loose and easily delivered through. Shoulders followed without difficulties. At this point the three-vessel cord was clamped x 2 and the baby was handed off to the pediatric team. At this point Cord blood sample and cord blood gases were both obtained. The placenta was manually expressed from the uterus and noted to be intact. The uterus was then exteriorized and cleared of all clots and debris. The uterine incision was closed using 0 Monocryl suture in a running locked fashion. There was 1 area at the left apex of the incision which was not hemostatic which was oversewn with a single [id number] suture of 0 Monocryl. Second layer was performed in an imbricating fashion. The uterine incision was again reinspected and noted to be hemostatic. The uterus was returned to the abdomen and abdomen irrigated with copious amounts of normal saline. Uterine incision was reinspected and noted hemostatic. The fascial incision was then closed using 0 Vicryl suture in a running fashion. The subcutaneous tissue was irrigated with copious amounts of normal saline and reapproximated with 3-0 Vicryl suture in a simple interrupted fashion. The skin edge was reapproximated with 4-0 undyed Monocryl. Steri- Strips and sterile dressing, lex was placed. Uterus is firm and 2 cm below the umbilicus after delivery. Patient was taken the center in stable condition with a Maravilla catheter draining clear yellow urine. Fluids: Crystalloid per anesthesia Complications: None apparent Pathology: 1. Cord blood sample 2. Cord blood gases 3. Placenta for examination Findings: Delivery of a viable male infant with a significant amount of caput. Thick meconium stained fluid, and a loose nuchal cord x 1. Normal-appearing tubes ovaries and uterus. Gestational Age in Weeks/Days: 41 Weeks and 1 Days Gender: Male
--- NOTE | 2025-09-06 19:58 | W.ANESPOSTOP ---
Postoperative Evaluation Date, Time and Location Date Performed: 09/06/25 Time Performed: 19:59 Patient Location: Obstetrics Vital Signs Most Recent Imported Vital Signs: Most Recent Vital Signs Temp Pulse Resp BP Pulse Ox 36.9 C 71 18 145/85 H 96 09/06/25 16:18 09/06/25 17:21 09/06/25 09:05 09/06/25 17:19 09/06/25 17:21 Assessment Mental Status: Awake (Alert & Oriented to Patient Baseline) Airway and Respiratory Function: Patent airway with normal (patient baseline) respiratory exam Cardiovascular Function: Hemodynamically Stable Hydration Status: Adequately Hydrated Nausea & Vomiting: No Nausea or Vomiting Pain: Pt. Denies Any Pain Peripheral Nerve Block: Patient did not receive a nerve block
[2025-09-07] VITALS (9 sets, daily range): BP systolic 100–116; BP diastolic 50–78; PULSE 88–89; RESP 16–18; TEMP 36.6–37.1; O2SAT 96–99
[2025-09-07] MEDS: Ketorolac 15 MG/ML VIAL IVP ×3 (00:38→13:47)
[2025-09-07 07:16] LABS: Abs Immature Grans 0.14 10^3/uL (0.0-0.06); HCT 30.3 % (36.0-46.0); Immature Grans % 0.7 %; MCH 27.9 pg (27.0-33.0); MCHC 33.7 % (32.0-36.0); MCV 83 fL (80-95); MPV 11.3 fL (8.0-11.0); Platelet Count 172 10^3/uL (130-400); RBC 3.66 10^6/uL (3.93-5.22); RDW 13.6 % (11.7-14.6); RDW-SD 41.1 fL; WBC 19.30 10^3/uL (4.4-10.8)
[2025-09-07 07:21] LABS: HGB 10.2 g/dL (11.2-15.7)
[2025-09-07] MEDS: Normal Saline Flush 10 ML SYR IVP (07:32)
[2025-09-07 08:04] LABS: Anisocytosis 1+; Microcytosis 1+
[2025-09-07] MEDS: Docusate Sodium 100 MG CAP PO ×2 (12:49→17:56)
[2025-09-07] MEDS: Acetaminophen 325 MG TAB 650 MG PO ×3 (12:49→21:30)
--- NOTE | 2025-09-07 18:41 | W.PM.OBPNV1 ---
Date of service: 09/07/25 Time of Service: 17:00 Assessment and Plan Assessment and plan (1) care and examination immediately after delivery: Status: Acute Assessment and plan: Pt is a 20yo P1 POD#1 s/p PCS for arrest, doing well. No significant concerns. Routine care. Subjective Subjective Narrative: Pt feeling well overall. Pain controlled on PO meds. +urination. Eating regular diet without n/v. Minimal lochia. +flatus, no BM yet. Nursing baby is going well. Exam Physical Exam Vital signs: Temp Pulse Resp BP Pulse Ox 97.9 F 88 17 104/53 L 98 09/07/25 12:30 09/07/25 12:30 09/07/25 12:30 09/07/25 12:30 09/07/25 12:30 Vital Signs Reviewed: Yes Constitutional Constitutional: no acute distress and cooperative Detailed HEENT Exam Head: Present normocephalic and atraumatic Respiratory Exam Respiratory Exam: Normal Abdominal Exam Abdomen: Tender (mildly) Comments: Dressing in placed, clean and dry. Fundal Exam Fundus: Below Umbilicus and Firm Extremities Exam Extremity Exam: Edema (trace) Detailed Neurological Exam Neurological: Present alert, oriented X3 and CN II-XII intact Results Hemoglobin/Hematocrit: Hgb 10.2 g/dL (11.2-15.7) L D 09/07/25 07:01 Hct 30.3 % (36.0-46.0) L 09/07/25 07:01 Abnormal Lab Findings: Abnormal Labs 09/05/25 09/07/25 16:24 07:01 WBC 12.51 H 19.30 H RBC 3.66 L Hgb 10.2 L D Hct 30.3 L MCH 26.9 L MPV 11.3 H 11.3 H Absolute Neutrophils 8.69 H 14.57 H Absolute Monocytes 1.29 H 2.45 H Chloride 110 H ALT 7 L Alkaline Phosphatase 159 H
[2025-09-07] MEDS: Ibuprofen 600 MG TAB PO (21:29)
[2025-09-08 02:21] VITALS: BP 116/74; PULSE 88; RESP 18; TEMP 36.6
[2025-09-08] MEDS: Acetaminophen 325 MG TAB 650 MG PO ×5 (07:31→23:55)
[2025-09-08] MEDS: Ibuprofen 600 MG TAB PO ×3 (07:36→23:56)
[2025-09-08 08:59] VITALS: BP 122/78; PULSE 82; RESP 16; TEMP 36.5; O2SAT 100
--- NOTE | 2025-09-08 10:44 | OBPPV_ITS ---
Date of service: 09/08/25 Time of Service: 10:44 Assessment and Plan Assessment and plan (1) Status post primary low transverse section: Status: Acute Assessment and plan: Patient seen today day #2 status post primary low-transverse . Overall doing well. Hemoglobin is stable. Vital signs are stable. Pain is reasonably well-controlled and lochia is physiologic. She is breast- feeding. She will stay until tomorrow. She declines circumcision for her . All questions were answered. Exam Physical Exam Vital signs: Temp Pulse Resp BP Pulse Ox 97.7 F 82 16 122/78 100 09/08/25 08:59 09/08/25 08:59 09/08/25 08:59 09/08/25 08:59 09/08/25 08:59 Vital Signs Reviewed: Yes Constitutional Constitutional: no acute distress and obese HEENT Exam HEENT Exam: Normal Neck Exam Neck Exam: Normal Respiratory Exam Respiratory Exam: Normal Cardiovascular Exam Cardiovascular Exam: Normal Abdominal Exam Abdomen: Tender Comments: PICCO in place Fundal Exam Fundus: Below Umbilicus and Firm Extremities Exam Extremity Exam: Normal and Edema (1+); negative Calf Tenderness or Cold to Touch Skin Exam Skin Exam: Normal Neurological Exam Neurological Exam: Normal Psychiatric Exam Psychiatric Exam: Normal Results Hemoglobin/Hematocrit: Hgb 10.2 g/dL (11.2-15.7) L D 09/07/25 07:01 Hct 30.3 % (36.0-46.0) L 09/07/25 07:01 Abnormal Lab Findings: Abnormal Labs 09/05/25 09/07/25 16:24 07:01 WBC 12.51 H 19.30 H RBC 3.66 L Hgb 10.2 L D Hct 30.3 L MCH 26.9 L MPV 11.3 H 11.3 H Absolute Neutrophils 8.69 H 14.57 H Absolute Monocytes 1.29 H 2.45 H Chloride 110 H ALT 7 L Alkaline Phosphatase 159 H
[2025-09-08] MEDS: Docusate Sodium 100 MG CAP PO (18:16)
[2025-09-08 20:00] VITALS: BP 117/72; PULSE 94; RESP 18; TEMP 37
--- NOTE | 2025-09-09 07:17 | W.PM.OBPNV1 ---
Date of service: 09/09/25 Time of Service: 07:17 Assessment and Plan Assessment and plan (1) Status post primary low transverse section: Status: Acute Assessment and plan: Postop day 2 status post primary low-transverse section for labor arrest after labor induction. No issues or concerns. Discharge home. Prescription sent. Subjective Subjective Interval history: Patient seen and examined this morning. Ready for discharge. Feeling well. Pain is well-controlled. No issues or concerns. Boubacar in place. Patient is also using an abdominal binder. Patient's Mood: Appropriate baby status: Doing well and Nursing well Exam Physical Exam Vital signs: Temp Pulse Resp BP Pulse Ox 98.6 F 94 H 18 117/72 100 09/08/25 20:00 09/08/25 20:00 09/08/25 20:00 09/08/25 20:00 09/08/25 08:59 Vital Signs Reviewed: Yes Constitutional Constitutional: no acute distress HEENT Exam HEENT Exam: Normal Respiratory Exam Respiratory Exam: Normal Cardiovascular Exam Cardiovascular Exam: Normal Abdominal Exam Abdomen: Tender Comments: Boubacar dressing in place well sealed. Patient using an abdominal binder. Fundal Exam Comment: Firm, below the umbilicus Extremities Exam Extremity Exam: Normal and Edema (1+ bilaterally); negative Calf Tenderness Skin Exam Skin Exam: Normal Neurological Exam Neurological Exam: Normal Psychiatric Exam Psychiatric Exam: Normal Results Hemoglobin/Hematocrit: Hgb 10.2 g/dL (11.2-15.7) L D 09/07/25 07:01 Hct 30.3 % (36.0-46.0) L 09/07/25 07:01 Abnormal Lab Findings: Abnormal Labs 09/05/25 09/07/25 16:24 07:01 WBC 12.51 H 19.30 H RBC 3.66 L Hgb 10.2 L D Hct 30.3 L MCH 26.9 L MPV 11.3 H 11.3 H Absolute Neutrophils 8.69 H 14.57 H Absolute Monocytes 1.29 H 2.45 H Chloride 110 H ALT 7 L Alkaline Phosphatase 159 H
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
[2025-09-09] MEDS: Ibuprofen 600 MG TAB PO (08:10)
[2025-09-09] MEDS: Acetaminophen 325 MG TAB 650 MG PO (08:11)
--- NOTE | 2025-09-09 08:20 | NUR.NOTE ---
Nursing Note: Pt sitting up in chair holding baby. Boubacar drain box in pocket, asked pt to remove, flashing green light indicates drain is working well. Will perfor rest of assessment once pt makes her way back to the bed.
[2025-09-09 08:37] VITALS: BP 114/67; PULSE 77; RESP 18; TEMP 36.6; O2SAT 98
[2025-09-10 16:26] LABS: Cannabinoids THC Negative (Negative)
== END 2025-09-09 10:35 | disposition home or self-care (01) | DRG 788 ==
PROVIDERS: Obstetrics & Gynecology; Admitting Provider Advanced Practice Midwife; Visit Provider Advanced Practice Midwife
PROC: 10D00Z1 Extraction of Products of Conception, Low, Open Approach (ICD-10-PCS; CPT 59514; principal; 2025-09-06 17:45)
DX: O99.214 Obesity complicating childbirth (principal); O62.1 Secondary uterine inertia; Z37.0 Single live birth; Z3A.41 41 weeks gestation of pregnancy; O69.81X0 Labor and delivery complicated by cord around neck, without compression, not applicable or unspecified; O77.0 Labor and delivery complicated by meconium in amniotic fluid; O76 Abnormality in fetal heart rate and rhythm complicating labor and delivery; O48.0 Post-term pregnancy; O61.1 Failed instrumental induction of labor; O99.62 Diseases of the digestive system complicating childbirth; K21.9 Gastro-esophageal reflux disease without esophagitis; Z87.891 Personal history of nicotine dependence
CPT/HCPCS: 59514; 59200; 36415; 80053; 80307; 80348; 86850; 86900; 86901; 85025; 88307; J0131; J0456; J0665; J0690; J1100; J1200; J1885; J2274; J2371; J2405; J3010